=== PATIENT | female | born 1975 | race Caucasian/White ===

== ENCOUNTER → 2017-07-12 | Outpatient (CLI) | payer OTHER ==
[2017-07-12 17:31] LABS: BASO % 0.4 %; BASO ABS # 0.03 K/uL (0-0.2); EOS % 1.7 %; EOS ABS # 0.13 K/uL (0-0.5); HEMATOCRIT 42.1 % (37-47); HEMOGLOBIN 14.4 g/dL (12.0-16.0); IG# 0.01 K/uL (0.00-0.02); LYMPH ABS # 1.99 K/uL (1.2-3.4); MEAN CORPUSCULAR HEMOGLOBIN 30.8 pg (25-34); MEAN CORPUSCULAR HGB CONC 34.2 g/dl (32-36); MONO % 7.6 %; MONO ABS # 0.58 K/uL (0.11-0.59); NEUT % 64.2 %; NEUT ABS # 4.91 K/uL (1.4-6.5); PLATELET COUNT 278 K/uL (130-400); RED CELL DISTRIBUTION WIDTH CV 13.5 % (11.5-14.5); WHITE BLOOD COUNT 7.65 K/uL (4.8-10.8)
[2017-07-16 20:35] LABS: ANA SCREEN TC 249X NEGATIVE (NEGATIVE)
== END | disposition home or self-care (01) ==
LOC: C.LABBFT 12:23
PROVIDERS: ATTEND Internal Medicine
DX: M25.50 Pain in unspecified joint (principal); M53.3 Sacrococcygeal disorders, not elsewhere classified; M54.5 Low back pain

== ENCOUNTER → 2017-07-12 | Outpatient (CLI) | payer OTHER | END | disposition home or self-care (01) | LOC: C.RDSM 15:00 | PROVIDERS: ATTEND Orthopaedic Surgery | DX: M25.562 Pain in left knee (principal) ==

== ENCOUNTER → 2017-07-19 | Outpatient (CLI) | payer OTHER ==
--- NOTE | 2017-07-19 12:23 | DIAGNOSTIC IMAGING REPORT ---
SI JOINTS 3 OR MORE VIEWS CLINICAL HISTORY: M54.5 Low back painM25.50 Arthralgia of multiple goegtY25.3 Cocc pain COMPARISON STUDY: None FINDINGS: Sacroiliac joints are unremarkable bilaterally. Potential slight sclerosis of the articular margins. No evidence of bony ankylosis. Sacral foramina are symmetric. IMPRESSION: Slight sclerotic change of the articular margins of the sacroiliac joints. This may be degenerative. No evidence for bony ankylosis. The above report was generated using voice recognition software. It may contain grammatical, syntax or spelling errors. Electronically signed by: Stephen Angelo M.D. 07/19/2017 12:22 PM Dictated Date/Time: 07/19/2017 12:21 PM
== END | disposition home or self-care (01) ==
LOC: C.LAB1850 11:50
PROVIDERS: ATTEND Internal Medicine
DX: M25.50 Pain in unspecified joint (principal); M54.5 Low back pain; M53.3 Sacrococcygeal disorders, not elsewhere classified

== ENCOUNTER → 2017-08-11 | Outpatient (CLI) | payer OTHER ==
--- NOTE | 2017-08-12 13:36 | MAMMOGRAPHY REPORT ---
BILATERAL DIGITAL SCREENING MAMMOGRAM TOMOSYNTHESIS WITH CAD: 08/11/2017 CLINICAL HISTORY: Routine screening. Patient has no complaints. TECHNIQUE: Breast tomosynthesis in addition to standard 2D mammography was performed. Current study was also evaluated with a Computer Aided Detection (CAD) system. COMPARISON: Comparison is made to exams dated: 05/10/2016 mammogram, 04/15/2015 mammogram - [facility], and 02/05/2014 mammogram. BREAST COMPOSITION: There are scattered areas of fibroglandular density in both breasts. FINDINGS: No suspicious masses, calcifications, or areas of architectural distortion are noted in ei ther breast. There has been no significant interval change compared to prior exams. IMPRESSION: ACR BI-RADS CATEGORY 1: NEGATIVE There is no mammographic evidence of malignancy. A 1 year screening mammogram is recommended. The pa tient will receive written notification of the results. Approximately 10% of breast cancers are not detected with mammography. A negative mammographic report should not delay biopsy if a clinically suggestive mass is present. Latha Antonio M.D. ah/:08/12/2017 07:14:27 Dental Ceramist Helper: Mer RANGEL(R)(M), [facility] letter sent: Normal 1/2 BI-RADS Code: ACR BI-RADS Category 1: Negative
== END | disposition home or self-care (01) ==
LOC: C.MAMM 13:56
PROVIDERS: ATTEND Internal Medicine
DX: Z12.31 Encounter for screening mammogram for malignant neoplasm of breast (principal)

== ENCOUNTER 2021-06-01 10:54 | Observation (INO) ==
[2021-06-01] MEDS ORDERED: ONDANSETRON INJ 2 MG/ML 2 ML VIAL IV STA (11:13)
[2021-06-01] MEDS ORDERED: MoRPHine SULFATE 4 MG/ML 1 ML CARP\\VIAL IV PRN (11:13)
[2021-06-01] MEDS ORDERED: SODIUM CHLORIDE 0.9% 1000ML 1,000 ML IV STA (11:13)
[2021-06-01] MEDS ORDERED: KETOROLAC TROMETHAMINE 15 MG/ML VIAL IV STA (11:13)
[2021-06-01] MEDS ORDERED: HYDROmorphone INJ 0.5 MG/0.5 ML SYR IV STA (11:13)
--- NOTE | 2021-06-01 11:18 | Emergency Department Note ---
Impression & Plan Renal colic, Acute right flank pain, Hydronephrosis, Failure of outpatient treatment ED Provider Note NAME: GUMARO CAO AGE: 46 SEX: F : 1975 ARRIVES VIA: Walk-In INFORMANT: [Patient] ED PROVIDER(S): [Sid Cam MD] CHIEF COMPLAINT: Kidney stone HISTORY OF PRESENT ILLNESS: The patient is a 46-year-old female presents to the ER with a right sided kidney stone. She was here on the 16th and then last evening. She is still in a lot of pain despite medication adjustments. She was referred in today by urology for pain control and what sounds like a retrieval procedure. The patient does have nausea, no vomiting. She is not sleeping well and she feels exhausted. The pain is severe on the right side and the right flank. No urinary burning or urgency. No chest pain or shortness of breath. This is her first kidney stone. The patient's stone noted on CT and ultrasound imaging with her last visits was around 5 mm and at the distal right ureter. REVIEW OF SYSTEMS: See HPI for pertinent positives and negatives. A total of ten systems were reviewed and were otherwise negative. PMHx/PSHx: See Below SOCIAL HISTORY: See Below. PHYSICAL EXAM: GENERAL: Patient is in mild distress from pain. HEENT: No acute trauma, normocephalic atraumatic, mucous membranes moist, no nasal congestion, no scleral icterus. NECK: No stridor, no adenopathy, no meningismus, trachea is midline. LUNGS: Clear to auscultation bilaterally, no wheeze, no rhonchi, breath sounds equal. HEART: Without murmurs gallops or rubs, regular rate and rhythm. ABDOMEN: Soft, mildly tender along the right lower abdomen, bowel sounds positive, no hernias, no peritonitis. EXTREMITIES: No cyanosis, mild bilateral pedal edema, full range of motion of all the joints without pain or difficulty, no signs for acute trauma. NEUROLOGIC: Oriented x 3, no acute motor or sensory deficits, no focal weakness. SKIN: No rash, no jaundice, no diaphoresis. Back: Right flank discomfort to percussion. DIFFERENTIAL DIAGNOSIS: Renal colic, UTI, appendicitis, diverticulitis, mesenteric ischemia, aortic pathology, infections, inflammatory bowel disease, PUD, biliary pathology, failed outpatient treatment, as well as other pathologies. EMERGENCY DEPARTMENT COURSE/PROCEDURES: MEDICAL DECISION MAKING: There is no leukocytosis or concerning anemia. There is a normal platelet count. There is some renal insufficiency/acute kidney injury with a creatinine elevation of 1.42. No electrolyte abnormality in need of emergent correction. Urinalysis does not show obvious infection. Covid testing returned negative. KUB shows a distal right ureteral stone as noted in previous imaging. On exam, the patient was uncomfortable and had right flank pain to percussion. The patient has failed outpatient treatment. This is her third visit for this same ureteral stone. The patient was given IV Dilaudid, IV Zofran, IV morphine, IV Toradol and IV saline. She does seem more comfortable. I discussed the case with urology. I spoke with the patient and case management. The on-call hospitalist has been consulted. The patient is likely going to require urologic intervention in addition to pain control. Past Med/Surg History Medical History Allergic rhinitis Bilateral cataracts Chronic right sacroiliac joint pain Depression with anxiety Eczema Hyperlipidemia Hypertension Insomnia Left knee pain Migraine headache Myofascial pain Nerve pain Osteoarthritis Varicose veins of legs Surgical History H/O Achilles tendon repair H/O foot surgery Padgett's neuroma excision History of arthroscopy of knee History of section History of total hysterectomy with bilateral oophorectomy Status post surgical manipulation of ankle joint left Family History Father Diabetes Hypertension Myocardial infarction Coronary heart disease Mother Depression Hypertension Anxiety Sister Gallbladder disease Denies family history of Ovarian cancer Prostate cancer Breast cancer Social History Smoking Status: Never smoker Hx Alcohol Use: No Hx Substance Use: No Preferred Language: [place] Visual Impairment: No Limitations Hearing Ability: Normal 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 Beliefs That Will Affect Care: None marital status: Current Living Situation: Spouse and Family current occupational status: employed and unemployed Feels Safe at Home: Yes Dental Care, Regularly: Yes Physical Activity Frequency: Other Physical Activity Frequency Comment: limited Seatbelt Use: always Allergies Allergies Allergy/AdvReac Type Severity Reaction Status Date / Time peanut Allergy Verified 06/01/21 12:51 Penicillins Allergy Verified 06/01/21 12:51 Home Meds Home Medications Medication Instructions Recorded Confirmed MedTerra CBD Gummies 25 mg PO DAILY PRN 05/15/21 06/01/21 albuterol sulfate 90 mcg/actuation 2 puffs INH Q6H PRN 05/28/21 06/01/21 aerosol inhaler (ProAir HFA) bupropion HCl 300 mg 24 hr tablet, 300 mg PO QAM 05/28/21 06/01/21 extended release enalapril 5 mg-hydrochlorothiazide 1 tab PO QAM 05/28/21 06/01/21 12.5 mg tablet estradiol 2 mg tablet 2 mg PO QAM 05/28/21 06/01/21 ibuprofen 200 mg tablet 800 mg PO Q6H PRN 05/28/21 06/01/21 multivitamin 1 tab PO QAM 05/28/21 06/01/21 phentermine 37.5 mg capsule 37.5 mg PO QAM 05/31/21 06/01/21 rosuvastatin 40 mg tablet 40 mg PO HS 05/31/21 06/01/21 tamsulosin 0.4 mg capsule (Flomax) 0.4 mg PO QAM 05/31/21 06/01/21 Previous Rx's Medication Instructions Recorded lorazepam 0.5 mg tablet 0.5 mg PO Q8H PRN #30 tab 06/19/20 gabapentin 300 mg capsule 1,500 mg PO HS #450 cap 12/18/20 zolpidem 5 mg tablet 5 mg PO HS #90 tab 04/10/21 ondansetron 4 mg disintegrating 4 mg PO Q6H PRN #10 tab 05/28/21 tablet hydrocodone 5 mg-acetaminophen 325 1 tab PO Q6H PRN #15 tab 05/29/21 mg tablet oxycodone 5 mg tablet 5 mg PO Q4H PRN #15 tab 05/31/21 phenazopyridine 200 mg tablet 200 mg PO Q8H PRN #10 tab 05/31/21 (Pyridium) cephalexin 500 mg capsule 500 mg PO BID 3 Days #6 cap 06/01/21 phenazopyridine 200 mg tablet 200 mg PO Q8H PRN #10 tab 06/01/21 (Pyridium) tamsulosin 0.4 mg capsule 0.4 mg PO HS #30 cap 06/01/21 Results & Data (ED) Vital Signs Vital Signs - 24 hr 06/01/21 10:56 06/01/21 11:29 06/01/21 12:27 Temperature 36.4 C L Temperature Source Temporal Artery Scan Pulse Rate 101 H Pulse Rate [Apical] 77 70 Pulse Rhythm [Apical] Regular Regular Respiratory Rate 16 14 14 Respiratory Effort / Characteristics Non-Labored Non-Labored Spontaneous Non-Labored Spontaneous Respiratory Depth Normal Normal Normal Respiratory Pattern Regular Regular Regular Blood Pressure 173/95 H Blood Pressure [Left Arm] 154/86 H 144/77 H Blood Pressure Mean 121 Blood Pressure Mean [Left Arm] 108 99 Blood Pressure Position [Left Arm] Lying Lying Pulse Oximetry 94 98 98 Oxygen Delivery Method Room Air Room Air Room Air Sepsis Recent Fever Within 48 Hours No Sepsis New/Unexplained Change in Mental Status No Sepsis Action Taken by Nursing No Action Required 06/01/21 14:41 06/01/21 15:27 Temperature 36.8 C Temperature Source Oral Pulse Rate Pulse Rate [Apical] 82 74 Pulse Rhythm [Apical] Regular Respiratory Rate 14 12 Respiratory Effort / Characteristics Non-Labored Spontaneous Respiratory Depth Normal Respiratory Pattern Regular Regular Blood Pressure Blood Pressure [Left Arm] 144/83 H 142/75 H Blood Pressure Mean Blood Pressure Mean [Left Arm] 103 97 Blood Pressure Position [Left Arm] Sitting Pulse Oximetry 93 94 Oxygen Delivery Method Room Air Room Air Sepsis Recent Fever Within 48 Hours Sepsis New/Unexplained Change in Mental Status Sepsis Action Taken by Retirement Medications Current Medication List: was personally reviewed by me Laboratory Data Attestation: I reviewed the patient's lab results. Result diagrams: 06/01/21 11:20 06/01/21 11:20 Lab Results 06/01/21 06/01/21 06/01/21 Range/Units 11:20 11:20 11:30 WBC 9.11 (4.8-10.8) K/uL RBC 4.32 (4.2-5.4) M/uL Hgb 13.2 (12.0-16.0) g/dL Hct 39.5 (37-47) % MCV 91.4 (80-100) fL MCH 30.6 (25-34) pg MCHC 33.4 (32-36) g/dL RDW Std Deviation 42.8 (36.4-46.3) fL RDW Coeff of Tereso 12.8 (11.5-14.5) % Plt Count 293 (130-400) K/uL MPV 9.2 (7.4-10.4) fL Immature Gran % (Auto) 0.1 % Neut % (Auto) 67.4 % Lymph % (Auto) 19.1 % [place] % (Auto) 10.6 % Eos % (Auto) 2.5 % Baso % (Auto) 0.3 % Neut # (Auto) 6.13 (1.4-6.5) K/uL Lymph # (Auto) 1.74 (1.2-3.4) K/uL [place] # (Auto) 0.97 H (0.11-0.59) K/uL Eos # (Auto) 0.23 (0-0.5) K/uL Baso # (Auto) 0.03 (0-0.2) K/uL Immature Gran # (Auto) 0.01 (0.00-0.02) K/uL Sodium 139 (136-145) mmol/L Potassium 3.8 (3.5-5.1) mmol/L Chloride 102 (98-107) mmol/L Carbon Dioxide 32 (21-32) mmol/L Anion Gap 5.0 (3-11) BUN 14 (7-18) mg/dl Creatinine 1.42 H (0.6-1.2) mg/dl Est Cr Clr Drug Dosing 64.1 ml/min Est GFR ( Amer) 50.5 ml/min Est GFR (Non-Af Amer) 43.6 ml/min BUN/Creatinine Ratio 10.2 (10-20) Glucose 107 H (70-99) mg/dl Calcium 9.3 (8.5-10.1) mg/dl Specimen Hemolysis Urine Color Urine Appearance (Clear) Urine pH (4.5-7.5) Ur Specific [place] (1.000-1.030) Urine Protein (Negative) Urine Glucose (UA) (Negative) Urine Ketones (Negative) Urine Blood (Negative) Urine Nitrite (Negative) Urine Bilirubin (Negative) Urine Urobilinogen (Negative) Ur Leukocyte Esterase (Negative) Urine RBC (0-4) /hpf Urine WBC (0-5) /hpf Ur Epithelial Cells (0-5) /lpf Urine Bacteria (Negative) SARS-CoV-2, RNA, NAAT NEGATIVE (NEGATIVE) 06/01/21 Range/Units 14:39 WBC (4.8-10.8) K/uL RBC (4.2-5.4) M/uL Hgb (12.0-16.0) g/dL Hct (37-47) % MCV (80-100) fL MCH (25-34) pg MCHC (32-36) g/dL RDW Std Deviation (36.4-46.3) fL RDW Coeff of Tereso (11.5-14.5) % Plt Count (130-400) K/uL MPV (7.4-10.4) fL Immature Gran % (Auto) % Neut % (Auto) % Lymph % (Auto) % [place] % (Auto) % Eos % (Auto) % Baso % (Auto) % Neut # (Auto) (1.4-6.5) K/uL Lymph # (Auto) (1.2-3.4) K/uL [place] # (Auto) (0.11-0.59) K/uL Eos # (Auto) (0-0.5) K/uL Baso # (Auto) (0-0.2) K/uL Immature Gran # (Auto) (0.00-0.02) K/uL Sodium (136-145) mmol/L Potassium (3.5-5.1) mmol/L Chloride (98-107) mmol/L Carbon Dioxide (21-32) mmol/L Anion Gap (3-11) BUN (7-18) mg/dl Creatinine (0.6-1.2) mg/dl Est Cr Clr Drug Dosing ml/min Est GFR ( Amer) ml/min Est GFR (Non-Af Amer) ml/min BUN/Creatinine Ratio (10-20) Glucose (70-99) mg/dl Calcium (8.5-10.1) mg/dl Specimen Hemolysis Urine Color [place] Urine Appearance Clear (Clear) Urine pH (4.5-7.5) Ur Specific [place] 1.018 (1.000-1.030) Urine Protein (Negative) Urine Glucose (UA) (Negative) Urine Ketones (Negative) Urine Blood (Negative) Urine Nitrite (Negative) Urine Bilirubin (Negative) Urine Urobilinogen (Negative) Ur Leukocyte Esterase (Negative) Urine RBC 0-4 (0-4) /hpf Urine WBC 5-10 H (0-5) /hpf Ur Epithelial Cells 5-10 H (0-5) /lpf Urine Bacteria 1+ H (Negative) SARS-CoV-2, RNA, NAAT (NEGATIVE) Administered Medications Discontinued Medications Diatrizoate Meglumine (Diatrizoate Meglumine 30% 100ml Vial) 10 ml INSTIL ONCE ONE Stop: 06/01/21 16:39 Last Admin: 06/01/21 16:20 Dose: 10 ml Documented by: [id number] Hydromorphone HCl (Hydromorphone Inj 0.5 Mg/0.5 Ml Syr) 0.5 mg IV NOW STA Stop: 06/01/21 11:14 Last Admin: 06/01/21 11:23 Dose: 0.5 mg Documented by: [id number] Sodium Chloride (Nss 1000ml) 1,000 mls @ 999 mls/hr IV .Q1H1M STA Stop: 06/01/21 12:13 Last Infusion: 06/01/21 12:18 Dose: 0 mls/hr Documented by: [id number] Admin: 06/01/21 11:24 Dose: 999 mls/hr Documented by: [id number] Cefazolin Sodium (Ancef 2000mg) 2,000 mg in 15 mls @ 3.75 mls/min IV ONCE ONE Stop: 06/01/21 16:42 Last Admin: 06/01/21 16:06 Dose: 3.75 mls/min Documented by: [id number] Ketorolac Tromethamine (Ketorolac Tromethamine 15 Mg/Ml Vial) 15 mg IV NOW STA Stop: 06/01/21 11:14 Last Admin: 06/01/21 11:23 Dose: 15 mg Documented by: [id number] Morphine Sulfate (Morphine Sulfate 4 Mg/Ml 1 Ml [place]\Vial) 4 mg IV Q15M PRN PRN Reason: Pain Stop: 06/15/21 11:12 Last Admin: 06/01/21 14:45 Dose: 4 mg Documented by: [id number] Ondansetron HCl (Ondansetron Inj 2 Mg/Ml 2 Ml Vial) 4 mg IV NOW STA Stop: 06/01/21 11:14 Last Admin: 06/01/21 11:23 Dose: 4 mg Documented by: [id number] Imaging Data Radiologist's Impression: Retrograde Pyelogram 06/01/21 00:00 FL retrograde includes kub CLINICAL HISTORY: RT CYSTO STENT COMPARISON STUDY: None FLUOROSCOPY TIME: 15 second. FLUOROSCOPIC IMAGES: 3 FINDINGS: A double-J ureteral stent was placed on the right. No filling defects are identified within the imaged portion of the calyces. IMPRESSION: Status post double-J ureteral stent placement. ACT 112: Negative or not required by law. Electronically signed by: Humphrey Amezcua M.D. 06/01/2021 4:35 PM KUB X-Ray 06/01/21 11:13 KUB HISTORY: Follow up study in a patient with a right ureteral calculus r stone COMPARISON: KUB 05/31/2021 FINDINGS: Nonobstructive bowel gas pattern. Unchanged positioning of the 5 mm calculus of the distal right ureter. No renal calculi identified. Pelvic basin phleboliths redemonstrated. No pneumoperitoneum or pneumatosis. No fracture. IMPRESSION: Unchanged 5 mm calculus of the distal right ureter. ACT 112: Negative or not required by law. The above report was generated using voice recognition software. It may contain grammatical, syntax or spelling errors. Electronically signed by: Srinivasa Vidales M.D. 06/01/2021 12:43 PM Discharge Plan Visit Data Chief Complaint: Kidney Stone Stated Complaint: RT SIDED FLANK PAIN,KIDNEY STONE ED Provider: Sid Cam Discharge Problem: Renal colic, Acute right flank pain, Hydronephrosis, Failure of outpatient treatment Patient Disposition: Admitted As Inpatient Condition: Fair Discharge Instructions Interventions: ED Discharge Assessment Last Done: 06/01/21 17:25
[2021-06-01 11:35] LABS: Basophils # (auto) 0.03 K/uL (0-0.2); Basophils % (auto) 0.3 %; Eosinophils # (auto) 0.23 K/uL (0-0.5); Eosinophils % (auto) 2.5 %; Hematocrit (blood only) 39.5 % (37-47); Hemoglobin 13.2 g/dL (12.0-16.0); Immature Granulocytes # (auto) 0.01 K/uL (0.00-0.02); Immature Granulocytes % (auto) 0.1 %; Lymphocytes # (auto) 1.74 K/uL (1.2-3.4); Lymphocytes % (auto) 19.1 %; Mean Corpuscular Hemoglobin 30.6 pg (25-34); Mean Corpuscular Hgb Conc 33.4 g/dL (32-36); Mean Corpuscular Volume 91.4 fL (80-100); Mean Platelet Volume 9.2 fL (7.4-10.4); Monocytes # (auto) 0.97 K/uL (0.11-0.59); Monocytes % (auto) 10.6 %; Neutrophils # (auto) 6.13 K/uL (1.4-6.5); Neutrophils % (auto) 67.4 %; Platelet Count 293 K/uL (130-400); RDW Coefficient of Variation 12.8 % (11.5-14.5); RDW Standard Deviation 42.8 fL (36.4-46.3); Red Blood Count 4.32 M/uL (4.2-5.4); White Blood Count 9.11 K/uL (4.8-10.8)
[2021-06-01 11:59] LABS: BUN Creatinine Ratio 10.2 (10-20); Calcium 9.3 mg/dl (8.5-10.1); Creatinine Clr Calc Pharmacy 64.1 ml/min; Est GFR (African American) 50.5 ml/min; Est GFR (Non-African American) 43.6 ml/min; Potassium 3.8 mmol/L (3.5-5.1)
--- NOTE | 2021-06-01 12:45 | XRay Report ---
KUB HISTORY: Follow up study in a patient with a right ureteral calculus r stone COMPARISON: KUB 05/31/2021 FINDINGS: Nonobstructive bowel gas pattern. Unchanged positioning of the 5 mm calculus of the distal right ureter. No renal calculi identified. Pelvic basin phleboliths redemonstrated. No pneumoperiton eum or pneumatosis. No fracture. IMPRESSION: Unchanged 5 mm calculus of the distal right ureter. ACT 112: Negative or not required by law. The above report was generated using voice recognition software. It may contain grammatical, syntax o r spelling errors. Electronically signed by: Srinivasa Vidales M.D. 06/01/2021 12:43 PM
--- NOTE | 2021-06-01 13:51 | Urology Consultation ---
Date of Consultation June 01, 2021 Assessment & Plan (1) Ureteral stone with hydronephrosis: (2) MARTÍN (acute kidney injury): (3) Acute right flank pain: 46yo F with intractable right flank pain and MARTÍN secondary to an obstructing right ureteral stone - Pt afebrile, non-toxic appearing. - Labs reviewed - Wbc normal, creatinine elevated to 1.42 (1.46 yesterday) - Urine culture pending - Findings reviewed with Dr. Pickard, on-call urologist. - Given her intractable flank pain and MARTÍN in the context of an obstructing 5mm right ureteral stone, will proceed with OR for cystoscopy, retrograde pyelogram, right ureteral stent placement depending on findings. Risks and benefits to be r eviewed with patient by Dr. Pickard. - OR notified. Covid test negative. Will cover with IV Ancef preoperatively. - Keep NPO - Strain all urine - Continue supportive care and pain management per primary team - Patient agreeable to plan, all questions were answered - Will continue to follow Attending note: Patient independently evaluated, examined, interviewed, and discussed options. Agree with above. Patient has obstructing stone on right with hydronephrosis and severe pain. Pain comes in waves into the back and flank can be severe and debilitating and was not responding well to outpatient therapy or IV narcotics. Patient has never had stone before. Has no family history of stone disease. Was not having major bleeding. Has not had considerable fevers or chills. Did have an MARTÍN when last assessed. Has been attempting to hydrate however has been dealing with some nausea. Patient is n.p.o. Had negative Covid test. Due to possible issues including possible damage to the kidney with long-term obstruction as well as considerable narcotic reliance and limited options for expulsion therapy surgical intervention have been discussed. Risks and benefits discussed at length for procedure. These include bleeding, infection, injury to surrounding tissues or organs, and risks associated with anesthesia. Patient states understanding and agrees to proceed. Will sign consent and proceed. Plan for cystoscopy with possible right stent placement. On top of the typical risks and benefits, there is increased risk due to the current pandemic from the COVID-19 virus and the resulting health care crisis. Patient's disease is considered a high risk with significant risk of morbidity and mortality if allowed to continue untreated. Different alternatives had been discussed. Delay of intervention at this time would have significant risk to life and limb. Specifically there is a chance of progression to severe disease or loss of organ/renal function, progression to infection or other advanced disease, and/or possible . The procedure is deemed medically necessary and life sustaining. This was determined based on best clinical judgement with guidelines and recommendations based on good practices. Multiple professional organizations have published and sent recommendations for surgical and urologic intervention and procedures and t he planned procedure falls into the category of necessary procedure. History of Present Illness Reason for Consultation: ureteral stone History of Present Illness 46yo F with a PMHx including bilateral cataracts, depression, anxiety, hypertension, migraine headache, osteoarthritis and varicose veins, Achilles tendon repair, Padgett's neuroma excision /arthroscopy of knee, , JENA/BSO who was admitted with intractable right flank pain and nausea secondary to an obstructing right ureteral stone. The patient initially presented to [facility] ER on 05/28/2021 complaining of right lower quadrant pain with nausea. CT scan noted an obstructing distal right ureteral calculus and the patient was discharged on Flomax, Zofran and Morganza and advised to seek outpatient stone care. On 05/31/2021 the patient returned to the ER complaining of persistent and severe right flank pain with no relief with Morganza. The patient was afebrile. The patient's imaging noted no change in the position of her right ureteral calculus and she was provided with oxycodone and Pyridium to take in addition to her Flomax and Zofran. She was instructed on the use of ibuprofen and Tylenol to assist with pain control in addition to her narcotic medication. She then presented again today (06/01) for persistent and worsening right flank pain. On presentation, she was afebrile. No leukocytosis. Creatinine elevated to 1.42. Urinalysis from 05/31 ED visit was negative. Urine culture from 05/28 negative for infection, was consistent with contamination. KUB today noted an unchanged 5mm calculus of the distal right ureter. She was given IVF, IV pain and nausea medication. Given her multiple ER visits and worsening renal colic after failing outpatient therapy, she was admitted to medicine for pain control. KUB 06/01- Unchanged 5 mm calculus of the distal right ureter. Renal ultrasound 05/31- Mild right-sided hydronephrosis redemonstrated, likely secondary to the persistent calculus of the distal right ureter as noted on the KUB study of same day. CTAP 05/28- 5 mm obstructing calculus at the right vesicoureteral junction. This causes mild to moderate right hydroureteronephrosis; No additional renal calculi are identified. Pt examined at bedside in the ED. Awake, resting in bed on arrival. Still with right flank pain, rates 6/10. Reports pain is improved with IV pain medication. She continues to have some associated nausea with her colic, but has not vomited. She has not had any fevers or chills. Voiding without issue. Patient denies any dysuria. Denies hematuria, however she has been taking Pyridium so her urine is orange in color. She has not had anything to eat or drink since yesterday. This is her first stone. She has seen a urologist in the past in [place]. She has a hx of bladder sling and urodynamic testing. No additional complaints at time of exam. Allergies Allergy/AdvReac Type Severity Reaction Status Date / Time peanut Allergy Verified 06/01/21 12:51 Penicillins Allergy Verified 06/01/21 12:51 Home Medications Medication Instructions Recorded Confirmed Type lorazepam 0.5 mg tablet 0.5 mg PO Q8H PRN #30 tab 06/19/20 06/01/21 Rx gabapentin 300 mg capsule 1,500 mg PO HS #450 cap 12/18/20 06/01/21 Rx zolpidem 5 mg tablet 5 mg PO HS #90 tab 04/10/21 06/01/21 Rx MedTerra CBD Gummies 25 mg PO DAILY PRN 05/15/21 06/01/21 History albuterol sulfate 90 mcg/actuation 2 puffs INH Q6H PRN 05/28/21 06/01/21 History aerosol inhaler (ProAir HFA) bupropion HCl 300 mg 24 hr tablet, 300 mg PO QAM 05/28/21 06/01/21 History extended release enalapril 5 mg-hydrochlorothiazide 1 tab PO QAM 05/28/21 06/01/21 History 12.5 mg tablet estradiol 2 mg tablet 2 mg PO QAM 05/28/21 06/01/21 History ibuprofen 200 mg tablet 800 mg PO Q6H PRN 05/28/21 06/01/21 History multivitamin 1 tab PO QAM 05/28/21 06/01/21 History ondansetron 4 mg disintegrating 4 mg PO Q6H PRN #10 tab 05/28/21 06/01/21 Rx tablet hydrocodone 5 mg-acetaminophen 325 1 tab PO Q6H PRN #15 tab 05/29/21 06/01/21 Rx mg tablet oxycodone 5 mg tablet 5 mg PO Q4H PRN #15 tab 05/31/21 06/01/21 Rx phenazopyridine 200 mg tablet 200 mg PO Q8H PRN #10 tab 05/31/21 06/01/21 Rx (Pyridium) phentermine 37.5 mg capsule 37.5 mg PO QAM 05/31/21 06/01/21 History rosuvastatin 40 mg tablet 40 mg PO HS 05/31/21 06/01/21 History tamsulosin 0.4 mg capsule (Flomax) 0.4 mg PO QAM 05/31/21 06/01/21 History Patient History Medical History Allergic rhinitis Bilateral cataracts Chronic right sacroiliac joint pain Depression with anxiety Eczema Hyperlipidemia Hypertension Insomnia Left knee pain Migraine headache Myofascial pain Nerve pain Osteoarthritis Varicose veins of legs Surgical History H/O Achilles tendon repair H/O foot surgery Padgett's neuroma excision History of arthroscopy of knee History of section History of total hysterectomy with bilateral oophorectomy Status post surgical manipulation of ankle joint left Family History Father Diabetes Hypertension Myocardial infarction Coronary heart disease Mother Depression Hypertension Anxiety Sister Gallbladder disease Denies family history of Ovarian cancer Prostate cancer Breast cancer Social History Smoking Status: Never smoker Hx Alcohol Use: No Hx Substance Use: No Preferred Language: Russian Visual Impairment: No Limitations Hearing Ability: Normal Pit Supervisor Required: No Beliefs That Will Affect Care: None marital status: Current Living Situation: Spouse and Family current occupational status: employed and unemployed Feels Safe at Home: Yes Dental Care, Regularly: Yes Physical Activity Frequency: Other Physical Activity Frequency Comment: limited Seatbelt Use: always Review of Systems Review of Systems: All systems reviewed & are unremarkable except as noted in HPI & below Physical Exam Constitutional: well developed and well nourished; no acute distress and not ill appearing ENMT: Ears: no hearing impairment Neck: normal visual inspection Respiratory: normal respiratory effort and able to speak in complete sentences; no labored breathing and no audible wheezes Gastrointestinal (Abdomen): Inspection/Auscultation: abdomen normal to inspection; abdomen not distended Musculoskeletal: Head/Neck/Chest: normocephalic Skin: No visible rashes or lesions to exposed skin areas Neurologic: moves all extremities and awake Psychiatric: Orientation: alert, oriented x 3 and cooperative Results & Data ([facility]) Vital Signs (Past 12 Hours) Vital Signs Temp Pulse Pulse Resp BP BP Pulse Ox 06/01/21 12:27 70 14 144/77 H 98 06/01/21 11:29 77 14 154/86 H 98 06/01/21 10:56 36.4 C L 101 H 16 173/95 H 94 PG Care Time/CCT Total # of Minutes Spent Total Time Spent with Patient: Total time spent is greater than 50% in coordination of care (as documented) at patient's floor/unit and/or counseling patient: Coding Level of Care Code 58229 Inpt Consult Level 4 Diagnoses Acute right flank pain R10.9 MARTÍN (acute kidney injury) N17.9 Ureteral stone with hydronephrosis N13.2
--- NOTE | 2021-06-01 14:12 | History & Physical Report ---
Date of Service June 01, 2021 Assessment & Plan (1) Colic, ureteral: (2) Right ureteral stone: (3) Hydroureter on right: (4) Ureteral stone with hydronephrosis: Plan: Mrs. Lynch is a 46-year-old female with a history of Hypertension, Familial Hypercholesterolemia, Depression, Anxiety, Obesity, Osteoarthritis, Migraine Headaches, Chronic Insomnia, and Varicose Veins who presents to [facility] ER today with ongoing RLQ and right flank pain and ureteral colic secondary to an obstructing ureteral stone resulting in right hydroureter and right hydronephrosis and MARTÍN. To her knowledge, this is the 1st time she has ever had kidney stone. Patient states that last Tuesday evening, she began to note right sided flank pain which seemed to come and go, with some associated nausea. she came to the emergency room on 05/28/2021 with these symptoms, CT scan showed a 5 mm obstructing calculus the right vesicoureteral junction causing mild to moderate right hydroureteronephrosis. patient was re-evaluated the emergency room on 05/31/2021 with uncontrolled severe right flank pain. Arrangements were made to meet with [facility] later today but because of her persistent uncontrolled flank and RLQ pain -- she was advised to come back into the emergency room for admission and a planned stone retrieval. At the present time, after receiving morphine, her pain is "not so bad", but when she has colic, it is extremely painful. She continues to have some associated nausea with her colic, but has not vomited. She has not had any fever, chills, or diaphoresis. Patient denies any dysuria, urinary hesitancy, urinary frequency, or urinary urgency. She is not . At home, she has both Vicodin and Oxy IR available for pain control -- but these have not been effectively controlling her pain. Evaluation in the ER shows a normal CBC with diff, elevated serum Creatinine or 1.42 mg/dL, normal BUN. imaging study show a 5 mm obstructing stone in the distal right ureter. Renal ultrasound yesterday confirmed presence of a right- sided hydroureteronephrosis. UA with reflex culture has been ordered but is not yet collected. UA dated 05/31/21 was unremarkable. Recommend the followin. Admit to Med-Surg. 2. Urology consult. 3. Opiate analgesics for pain control. 4. IVF's. 5. Anti-emetics as needed. 6. Monitor labs renal function daily. (5) MARTÍN (acute kidney injury): Plan: Serum Creatinine on 05/31/21 was 1.46 mg/dL, and it is 1.42 mg/dL today. Baseline appears to be less than 0.8 mg/dL. -- IVF's. -- Monitor daily BMP. -- Will resolve following stone removal. -- Hold Enalapril-HCTZ for the time being. (6) Hypertension: Plan: Mildly hypertensive on admission, but she has pain with her condition. -- Hold Enalapril-HCTZ for the time being due to MARTÍN. (7) Hyperlipidemia: Plan: Continue Crestor 40 mg daily -- Last FLP in February 2020 shows a total cholesterol of 214 mg/dL, HDL 74 mg/dL, and an LDL 116 mg/dL. History of Present Illness Chief Complaint: Mrs. Lynch is a 46-year-old female with a history of Hypertension, Familial Hypercholesterolemia, Depression, Anxiety, Obesity, Osteoarthritis, Migraine Headaches, Chronic Insomnia, and Varicose Veins who presents to [facility] ER today with ongoing RLQ and right flank pain and ureteral colic secondary to an obstructing ureteral stone resulting in right hydroureter and right hydronephrosis and MARTÍN. To her knowledge, this is the 1st time she has ever had kidney stone. Patient states that last Tuesday evening, she began to note right sided flank pain which seemed to come and go, with some associated nausea. she came to the emergency room on 05/28/2021 with these symptoms, CT scan showed a 5 mm obstructing calculus the right vesicoureteral junction causing mild to moderate right hydroureteronephrosis. patient was re-evaluated the emergency room on 05/31/2021 with uncontrolled severe right flank pain. Arrangements were made to meet with [facility] later today but because of her persistent uncontrolled flank and RLQ pain -- she was advised to come back into the emergency room for admission and a planned stone retrieval. At the present time, after receiving morphine, her pain is "not so bad", but when she has colic, it is extremely painful. She continues to have some associated nausea with her colic, but has not vomited. She has not had any fever, chills, or diaphoresis. Patient denies any dysuria, urinary hesitancy, urinary frequency, or urinary urgency. She is not . At home, she has both Vicodin and Oxy IR available for pain control -- but these have not been effectively controlling her pain. Primary Care Provider: Betsy Hughes MD Allergies Allergy/AdvReac Type Severity Reaction Status Date / Time peanut Allergy Verified 06/01/21 12:51 Penicillins Allergy Verified 06/01/21 12:51 Home Medications Medication Instructions Recorded Confirmed Type lorazepam 0.5 mg tablet 0.5 mg PO Q8H PRN #30 tab 06/19/20 06/02/21 Rx gabapentin 300 mg capsule 1,500 mg PO HS #450 cap 12/18/20 06/02/21 Rx zolpidem 5 mg tablet 5 mg PO HS #90 tab 04/10/21 06/02/21 Rx MedTerra CBD Gummies 25 mg PO DAILY PRN 05/15/21 06/02/21 History albuterol sulfate 90 mcg/actuation 2 puffs INH Q6H PRN 05/28/21 06/02/21 History aerosol inhaler (ProAir HFA) bupropion HCl 300 mg 24 hr tablet, 300 mg PO QAM 05/28/21 06/02/21 History extended release enalapril 5 mg-hydrochlorothiazide 1 tab PO QAM 05/28/21 06/02/21 History 12.5 mg tablet estradiol 2 mg tablet 2 mg PO QAM 05/28/21 06/02/21 History ibuprofen 200 mg tablet 800 mg PO Q6H PRN 05/28/21 06/02/21 History multivitamin 1 tab PO QAM 05/28/21 06/02/21 History ondansetron 4 mg disintegrating 4 mg PO Q6H PRN #10 tab 05/28/21 06/02/21 Rx tablet hydrocodone 5 mg-acetaminophen 325 1 tab PO Q6H PRN #15 tab 05/29/21 06/02/21 Rx mg tablet oxycodone 5 mg tablet 5 mg PO Q4H PRN #15 tab 05/31/21 06/02/21 Rx phentermine 37.5 mg capsule 37.5 mg PO QAM 05/31/21 06/02/21 History rosuvastatin 40 mg tablet 40 mg PO HS 05/31/21 06/02/21 History phenazopyridine 200 mg tablet 200 mg PO Q8H PRN #10 tab 06/01/21 06/02/21 Rx (Pyridium) tamsulosin 0.4 mg capsule 0.4 mg PO HS #30 cap 06/01/21 06/02/21 Rx Past Med/Surg History Medical History Allergic rhinitis Bilateral cataracts Chronic right sacroiliac joint pain Depression with anxiety Eczema Hyperlipidemia Hypertension Insomnia Left knee pain Migraine headache Myofascial pain Nerve pain Osteoarthritis Varicose veins of legs Surgical History H/O Achilles tendon repair H/O foot surgery Padgett's neuroma excision History of arthroscopy of knee History of section History of total hysterectomy with bilateral oophorectomy Status post surgical manipulation of ankle joint left Family History Father Diabetes Hypertension Myocardial infarction Coronary heart disease Mother Depression Hypertension Anxiety Sister Gallbladder disease Denies family history of Ovarian cancer Prostate cancer Breast cancer Social History Smoking Status: Never smoker Hx Alcohol Use: No Hx Substance Use: No Preferred Language: Ugandan Visual Impairment: No Limitations Hearing Ability: Normal Engine Turner Required: No Beliefs That Will Affect Care: None marital status: Current Living Situation: Spouse and Family current occupational status: employed and unemployed Feels Safe at Home: Yes Dental Care, Regularly: Yes Physical Activity Frequency: Other Physical Activity Frequency Comment: limited Seatbelt Use: always Review of Systems Review of Systems: Ten point review of systems was completed, and was negative with exception of what is mentioned in the HPI. Physical Exam Physical Exam: GENERAL: Patient is lying on the ER litter and is in no acute distress. HEENT: Head is atraumatic, normocephalic. Sclerae anicteric. EOM's intact. Facies symmetric. No perioral cyanosis. NECK: No JVD. JVP is at the level of the clavicle sitting upright. Carotid upstrokes are + 2 bilaterally without obvious bruits. CHEST/LUNGS: Clear to auscultation throughout all lung [place]oy. No wheezes, rales, or crackles. CVS: S1 and S2 are regular without murmurs, gallops, or rubs. PMI is nonpalpable. No lifts, heaves, or thrills. No abdominal aortic or renal bruits. ABDOMINAL EXAM: Bowel sounds are present. Tenderness to deep palpation right lower quadrant. No guarding, rigidity, or rebound tenderness. No masses or organomegaly. EXTREMITIES: No clubbing or cyanosis. No edema. Intact posterior tibial and radial pulses bilaterally. NEUROLOGIC EXAM: Patient is awake, alert, and oriented. Pleasant and cooperative. Answers questions appropriately. Speech is clear. Gait pattern was not assessed. Osha Inspector shows a normal sinus rhythm. Results & Data Results & Data ([facility]) Vital Signs (Past 12 Hours) Vital Signs Temp Pulse Pulse Resp BP BP Pulse Ox 06/01/21 12:27 70 14 144/77 H 98 06/01/21 11:29 77 14 154/86 H 98 06/01/21 10:56 36.4 C L 101 H 16 173/95 H 94 Laboratory Results Laboratory Results - last 24 hr 06/01/21 06/01/21 06/01/21 11:20 11:20 11:30 WBC 9.11 RBC 4.32 Hgb 13.2 Hct 39.5 MCV 91.4 MCH 30.6 MCHC 33.4 RDW Std Deviation 42.8 RDW Coeff of Tereso 12.8 Plt Count 293 MPV 9.2 Immature Gran % (Auto) 0.1 Neut % (Auto) 67.4 Lymph % (Auto) 19.1 [place] % (Auto) 10.6 Eos % (Auto) 2.5 Baso % (Auto) 0.3 Neut # (Auto) 6.13 Lymph # (Auto) 1.74 [place] # (Auto) 0.97 H Eos # (Auto) 0.23 Baso # (Auto) 0.03 Immature Gran # (Auto) 0.01 Sodium 139 Potassium 3.8 Chloride 102 Carbon Dioxide 32 Anion Gap 5.0 BUN 14 Creatinine 1.42 H Est Cr Clr Drug Dosing 64.1 Est GFR ( Amer) 50.5 Est GFR (Non-Af Amer) 43.6 BUN/Creatinine Ratio 10.2 Glucose 107 H Calcium 9.3 Specimen Hemolysis SARS-CoV-2, RNA, NAAT NEGATIVE Diagnostic Findings KUB 06/01/21: Nonobstructive bowel gas pattern. Unchanged positioning of the 5 mm calculus of the distal right ureter. No renal calculi identified. Pelvic basin phleboliths redemonstrated. No pneumoperitoneum or pneumatosis. No fracture. IMPRESSION: Unchanged 5 mm calculus of the distal right ureter. RENAL ULTRASOUND 05/31/21: Mild right-sided hydroureteronephrosis redemonstrated without renal or ureteral calculi identified. The right kidney measures 13.3 x 7.1 x 5.5 cm. The left kidney measures 11.1 x 4.7 x 5.2 cm and is unremarkable without renal calculi, hydronephrosis or suspicious mass lesion. Decompressed urinary bladder. Ureteral jets not identified. IMPRESSION: Mild right-sided hydronephrosis redemonstrated, likely secondary to the persistent calculus of the distal right ureter as noted on the KUB study of same day. KUB 05/31/21: Moderate fecal retention with nonobstructive bowel gas pattern. Unchanged positioning of the 5 mm calculus of the distal right ureter. Pelvic basin phleboliths. No renal calculi identified. No pneumoperitoneum or pneumatosis. No fracture. IMPRESSION: Unchanged 5 mm calculus of the distal right ureter. Medications Administered Medications lorazepam 0.5 mg tablet 0.5 mg PO Q8H PRN #30 tab 06/19/20 [Rx Confirmed 06/01/21] gabapentin 300 mg capsule 1,500 mg PO HS #450 cap 12/18/20 [Rx Confirmed 06/01/21] zolpidem 5 mg tablet 5 mg PO HS #90 tab 04/10/21 [Rx Confirmed 06/01/21] MedTerra CBD Gummies 25 mg PO DAILY PRN 05/15/21 [History Confirmed 06/01/21] albuterol sulfate 90 mcg/actuation aerosol inhaler (ProAir HFA) 2 puffs INH Q6H PRN 05/28/21 [History Confirmed 06/01/21] bupropion HCl 300 mg 24 hr tablet, extended release 300 mg PO QAM 05/28/21 [History Confirmed 06/01/21] enalapril 5 mg-hydrochlorothiazide 12.5 mg tablet 1 tab PO QAM 05/28/21 [History Confirmed 06/01/21] estradiol 2 mg tablet 2 mg PO QAM 05/28/21 [History Confirmed 06/01/21] ibuprofen 200 mg tablet 800 mg PO Q6H PRN 05/28/21 [History Confirmed 06/01/21] multivitamin 1 tab PO QAM 05/28/21 [History Confirmed 06/01/21] ondansetron 4 mg disintegrating tablet 4 mg PO Q6H PRN #10 tab 05/28/21 [Rx Confirmed 06/01/21] hydrocodone 5 mg-acetaminophen 325 mg tablet 1 tab PO Q6H PRN #15 tab 05/29/21 [Rx Confirmed 06/01/21] oxycodone 5 mg tablet 5 mg PO Q4H PRN #15 tab 05/31/21 [Rx Confirmed 06/01/21] phenazopyridine 200 mg tablet (Pyridium) 200 mg PO Q8H PRN #10 tab 05/31/21 [Rx Confirmed 06/01/21] phentermine 37.5 mg capsule 37.5 mg PO QAM 05/31/21 [History Confirmed 06/01/21] rosuvastatin 40 mg tablet 40 mg PO HS 05/31/21 [History Confirmed 06/01/21] tamsulosin 0.4 mg capsule (Flomax) 0.4 mg PO QAM 05/31/21 [History Confirmed 06/01/21] Home Medications Morphine Sulfate (Morphine Sulfate 4 Mg/Ml 1 Ml Carp\\Vial) 4 mg IV Q15M PRN PRN Reason: Pain Stop: 06/15/21 11:12 Code Status & VTE Plan Code Status Full Code VTE Prophylaxis Plan VTE Prophylaxis will be ordered: Yes Supervising Physician Co-Signing Physician Notes I personally saw and examined the patient. I verified all hollis points and agree with David Shane PA-C with the following exceptions and/or additions: 46 year old female admission for ureterolithiasis. Patient seen after ureteral stent placed and no longer in pain. No dysuria O/E HS1+2, Chest CTAB, Abdo SNT, no CVA tenderness. A/P Ureterolithiasis - stable for discharge s/p ureteral stent insertion and stone basket extraction. Antibiotics per urology. Follow up with urology on discharge. Recommend BMP in approximately 1 week MARTÍN - suspect post obstructive, should now improve as patient is eating and drinking well PG Care Time/CCT Total # of Minutes Spent Total Time Spent with Patient: Total time spent is greater than 50% in coordination of care (as documented) at patient's floor/unit and/or counseling patient:35 Coding Level of Care Code 35750 Initial Inpt Care Lvl 2 Diagnoses Colic, ureteral N23 Right ureteral stone N20.1 Hydroureter on right N13.4 Ureteral stone with hydronephrosis N13.2 MARTÍN (acute kidney injury) N17.9 Hypertension I10 Hyperlipidemia E78.5 Time Spent (min) 50
[2021-06-01 15:03] LABS: Appearance Urine Clear (Clear); Color Urine Orange
[2021-06-01 15:04] LABS: Specific Gravity Urine 1.018 (1.000-1.030)
[2021-06-01 15:08] LABS: Bacteria Urine 1+ (Negative); RBC Urine 0-4 /hpf (0-4)
--- NOTE | 2021-06-01 15:09 | Anesthesiology Consultation ---
Date of Service June 01, 2021 Assessment & Plan Chart Review Chart Review: Acceptable Risk for Surgery and Patient NOT seen in Pre Admission Testing Consults Requested none ASA [id number] Proposed Anesthesia Anesthesia Type: General Additional Comments: covid test negative History Surgery Operation Date: 06/01/21 10:05 Proposed Procedures p Cystoscopy, Right Stent Placement - Jhonatan Pickard, DO Height/Weight Height: 5 ft 5 in Weight: 124.1 kg Allergies Allergy/AdvReac Type Severity Reaction Status Date / Time peanut Allergy Verified 06/01/21 12:51 Penicillins Allergy Verified 06/01/21 12:51 Medications Home Medications Medication Instructions Recorded Confirmed Last Taken lorazepam 0.5 mg tablet 0.5 mg PO Q8H PRN #30 tab 06/19/20 06/01/21 05/31/21 gabapentin 300 mg capsule 1,500 mg PO HS #450 cap 12/18/20 06/01/21 05/31/21 zolpidem 5 mg tablet 5 mg PO HS #90 tab 04/10/21 06/01/21 05/31/21 MedTerra CBD Gummies 25 mg PO DAILY PRN 05/15/21 06/01/21 05/31/21 albuterol sulfate 90 mcg/actuation 2 puffs INH Q6H PRN 05/28/21 06/01/21 05/31/21 aerosol inhaler (ProAir HFA) bupropion HCl 300 mg 24 hr tablet, 300 mg PO QAM 05/28/21 06/01/21 05/31/21 extended release enalapril 5 mg-hydrochlorothiazide 1 tab PO QAM 05/28/21 06/01/21 05/31/21 12.5 mg tablet estradiol 2 mg tablet 2 mg PO QAM 05/28/21 06/01/21 05/31/21 ibuprofen 200 mg tablet 800 mg PO Q6H PRN 05/28/21 06/01/21 05/31/21 multivitamin 1 tab PO QAM 05/28/21 06/01/21 05/31/21 ondansetron 4 mg disintegrating 4 mg PO Q6H PRN #10 tab 05/28/21 06/01/21 05/31/21 tablet hydrocodone 5 mg-acetaminophen 325 1 tab PO Q6H PRN #15 tab 05/29/21 06/01/21 05/31/21 mg tablet oxycodone 5 mg tablet 5 mg PO Q4H PRN #15 tab 05/31/21 06/01/21 Unknown phenazopyridine 200 mg tablet 200 mg PO Q8H PRN #10 tab 05/31/21 06/01/21 05/31/21 (Pyridium) phentermine 37.5 mg capsule 37.5 mg PO QAM 05/31/21 06/01/21 05/31/21 rosuvastatin 40 mg tablet 40 mg PO HS 05/31/21 06/01/21 05/31/21 tamsulosin 0.4 mg capsule (Flomax) 0.4 mg PO QAM 05/31/21 06/01/21 05/31/21 Active Medications Generic Name Dose Route Start Last Admin Trade Name Freq PRN Reason Stop Dose Admin Morphine Sulfate 4 mg 06/01/21 11:13 06/01/21 14:45 Morphine Sulfate 4 Mg/Ml 1 Ml Carp\Vial IV 06/15/21 11:12 4 mg Q15M PRN Administration Pain Past Medical History Medical History Allergic rhinitis Bilateral cataracts Chronic right sacroiliac joint pain Depression with anxiety Eczema Hyperlipidemia Hypertension Insomnia Left knee pain Migraine headache Myofascial pain Nerve pain Osteoarthritis Varicose veins of legs Exercise / Class Metabolic Activity II 4-5 Yardwork/Stairs/Walk up hill Past Family History Family History Father Diabetes Hypertension Myocardial infarction Coronary heart disease Mother Depression Hypertension Anxiety Sister Gallbladder disease Denies family history of Ovarian cancer Prostate cancer Breast cancer Past Surgical History Surgical History H/O Achilles tendon repair H/O foot surgery Padgett's neuroma excision History of arthroscopy of knee History of section History of total hysterectomy with bilateral oophorectomy Status post surgical manipulation of ankle joint left Past Anesthesia History No Hx of Anesthesia Complications and No Family Hx of Anesthesia Complications History of PONV No Hx of PONV and No Hx of Motion Sickness Social History Smoking Status: Never smoker Hx Alcohol Use: No Hx Substance Use: No Physical Exam Vital Signs Last Vital Signs Temp 36.4 C L 06/01/21 10:56 Pulse 82 06/01/21 14:41 Resp 14 06/01/21 14:41 BP 144/83 H 06/01/21 14:41 Pulse Ox 93 06/01/21 14:41 Testing Laboratory Results 06/01/21 11:20 06/01/21 11:20 Urine Color Mono 06/01/21 14:39 Urine Appearance Clear (Clear) 06/01/21 14:39 Urine pH (4.5-7.5) 06/01/21 14:39 Ur Specific [place] 1.018 (1.000-1.030) 06/01/21 14:39 Urine Protein (Negative) 06/01/21 14:39 Urine Glucose (UA) (Negative) 06/01/21 14:39 Urine Ketones (Negative) 06/01/21 14:39 Urine Nitrite (Negative) 06/01/21 14:39 Ur Leukocyte Esterase (Negative) 06/01/21 14:39
[2021-06-01] MEDS ORDERED: ceFAZolin 2000MG 2,000 MG/15 ML SYR IV ONE ×2 (15:11→16:39)
[2021-06-01] MEDS ORDERED: LABETALOL HCL IV 5 MG/ML 20ML IV PRN (15:42)
[2021-06-01] MEDS ORDERED: ATROPINE SULFATE 0.1 MG/ML 10ML SYR IV PRN (15:42)
[2021-06-01] MEDS ORDERED: ePHEDrine sulfate 50 MG/ML AMP IV PRN (15:42)
[2021-06-01] MEDS ORDERED: fentaNYL citrate 100 MCG/2 ML VIAL IV PRN (15:42)
[2021-06-01] MEDS ORDERED: ONDANSETRON INJ 2 MG/ML 2 ML VIAL IV PRN (15:42)
[2021-06-01] MEDS ORDERED: NALOXONE HCL 0.4 MG/1 ML VIAL/CARP IV PRN (15:42)
[2021-06-01] MEDS ORDERED: FLUMAZENIL 0.1 MG/1 ML 10 ML VIAL IV PRN (15:42)
[2021-06-01] MEDS ORDERED: PROMETHAZINE HCL 12.5 MG in SODIUM CHLORIDE 0.9% 50 ML IV PRN (15:42)
--- NOTE | 2021-06-01 16:24 | Operative Report ---
PG Post Operative Report Pre & Post Diagnosis Obstructing Right Ureteral Stone Same Operation Date: 06/01/21 10:05 <No data on this case meets the specified criteria> I identified the patient and participated in the time-out.: Yes Procedure Cystoscopy with right ureteroscopy, ureteral dilation, stone basket extraction, retrograde pyelogram, and stent placement. Operation Date: 06/01/21 10:05 <No data on this case meets the specified criteria> Surgeon Jhonatan Pickard, II, DO Vocational Rehab Consultant None Estimated Blood Loss 1 Findings Consistent with Post-Op Diagnosis Stricture at UO/distal ureter. Stone proximal to stricture. Stone destroyed to dust and small fragments and larger fragments removed. Specimens Stone Right Ureter Drains 6 Fr Multilength Anesthesia Type General Complications none Disposition Disposition: Recovery Room Indications Patient with bothersome stones. Risks and benefits discussed at length. Description of Procedure Patient was consented and brought back to the operating room. Patient was placed under anesthesia in the supine position and moved to the dorsal lithotomy position. Patient was prepped and draped in the regular sterile fashion. A time out was completed. A 30degree Cystoscope was placed into the bladder and the entire bladder was examined. The UO's were identified. The UO was cannulized with a catheter and a retrograde pyelogram was completed. A wire was then placed. The Rigid ureteroscope was taken into the ureter. The stone was identified. A stricture was just distal to the stone which was impacted into the wall. The stone was displaced and the stricture dilated. The stone was then grasped and removed and sent for analysis. The entire area was once again examined. No residual large fragments or areas of concern were noted. Visualization was limited due to the pyridium the patient had been taking and debris proximal to the stone. The scope was slowly removed with the wire left in place. Contrast was placed through the scope for a pyelogram to assist in stent placement. The entire ureter was examined as the scope was slowly removed. No obstructions or other areas of concern were noted. With the wire in place, a 6 Fr Double J stent was placed. It was confirmed with fluoroscopy. With the stent in place, the bladder was emptied. The scope was removed. The patient was cleaned, aroused from anesthesia, and transferred to the pacu in stable condition having tolerated the procedure well with no complications. I was present and participated in all aspects of the procedure. The patient will be monitored in the PACU until transferred. Plan to maintain stent for 2-3 weeks. Check Imaging prior to removal in office. I attest to the content of the Intraoperative Record and any orders documented therein. Any exceptions are noted below.
--- NOTE | 2021-06-01 16:37 | Fluoroscopy Report ---
FL retrograde includes kub CLINICAL HISTORY: RT CYSTO STENT COMPARISON STUDY: None FLUOROSCOPY TIME: 15 second. FLUOROSCOPIC IMAGES: 3 FINDINGS: A double-J ureteral stent was placed on the right. No filling defects are identified within the imaged portion of the calyces. IMPRESSION: Status post double-J ureteral stent placement. ACT 112: Negative or not required by law. Electronically signed by: Humphrey Amezcua M.D. 06/01/2021 4:35 PM
[2021-06-01] MEDS ORDERED: DIATRIZOATE MEGLUMINE 30% 100ML VIAL INSTIL ONE (16:38)
--- NOTE | 2021-06-01 16:56 | Anesthesiology Progress Note ---
Date of Service June 01, 2021 Anesthesia Post Procedure Vital Signs Vital Signs: Temp Pulse Pulse Resp BP BP Pulse Ox 06/01/21 16:29 36.6 C 91 H 12 131/71 96 06/01/21 15:27 36.8 C 74 12 142/75 H 94 06/01/21 14:41 82 14 144/83 H 93 06/01/21 12:27 70 14 144/77 H 98 06/01/21 11:29 77 14 154/86 H 98 06/01/21 10:56 36.4 C L 101 H 16 173/95 H 94 Pain Intensity Right Flank: Pain Intensity: 6 Transfer of Care Handoff Completed per policy Notes Mental Status: alert / awake / arousable Patient Amnestic to Procedure: Yes Nausea / Vomiting: adequately controlled Pain: adequately controlled Airway Patency, RR, SpO2: stable & adequate BP & HR: stable & adequate Hydration State: stable & adequate Anesthetic Complications: no major complications apparent
[2021-06-01] MEDS ORDERED: LORazepam 0.5 MG TAB PO PRN (17:25)
[2021-06-01] MEDS ORDERED: SODIUM CHLORIDE 0.9% 1000ML 1,000 ML IV SCH (17:25)
[2021-06-01] MEDS ORDERED: HYDROmorphone INJ 0.5 MG/0.5 ML SYR IV PRN (17:25)
[2021-06-01] MEDS ORDERED: oxyCODONE HCL IR 5 MG TAB (IMMEDIATE RELEASE) PO PRN (17:25)
[2021-06-01] MEDS ORDERED: PHENAZOPYRIDINE HCL 200 MG TAB PO PRN (17:25)
[2021-06-01] MEDS ORDERED: ZOLPIDEM TARTRATE 5 MG TAB PO PRN (17:25)
[2021-06-01] MEDS ORDERED: HYDROCODONE/ACETAMOPHEN 5/325MG TAB PO PRN (17:25)
[2021-06-01] MEDS ORDERED: ONDANSETRON 4 MG OD TAB PO PRN (17:40)
[2021-06-01] MEDS ORDERED: ALBUTEROL HFA 8 GM INHALER INH PRN (17:45)
[2021-06-01] MEDS ORDERED: ENOXAPARIN INJ 40 MG/0.4 ML SYR SQ SCH (20:00)
[2021-06-01] MEDS ORDERED: ROSUVASTATIN CALCIUM 20 MG TAB PO SCH (21:00)
[2021-06-01] MEDS ORDERED: GABAPENTIN 300 MG CAP PO SCH (21:00)
[2021-06-01] MEDS ORDERED: ZOLPIDEM TARTRATE 5 MG TAB PO SCH (21:00)
[2021-06-02] MEDS ORDERED: MULTIVITAMIN TAB PO SCH (09:00)
[2021-06-02] MEDS ORDERED: buPROPion XL 300 MG TABCR PO SCH (09:00)
[2021-06-02] MEDS ORDERED: estradioL 1 MG TAB PO SCH (09:00)
[2021-06-02] MEDS ORDERED: TAMSULOSIN HCL 0.4 MG CAP PO SCH (09:00)
--- NOTE | 2021-06-04 13:02 | Discharge Summary ---
Date of Service June 01, 2021 Admission HPI Per Admitting Provider Mrs. Lynch is a 46-year-old female with a history of Hypertension, Familial Hypercholesterolemia, Depression, Anxiety, Obesity, Osteoarthritis, Migraine Headaches, Chronic Insomnia, and Varicose Veins who presents to [facility] ER today with ongoing RLQ and right flank pain and ureteral colic secondary to an obstructing ureteral stone resulting in right hydroureter and right hydronephrosis and MARTÍN. To her knowledge, this is the 1st time she has ever had kidney stone. Patient states that last Tuesday evening, she began to note right sided flank pain which seemed to come and go, with some associated nausea. she came to the emergency room on 05/28/2021 with these symptoms, CT scan showed a 5 mm obstructing calculus the right vesicoureteral junction causing mild to moderate right hydroureteronephrosis. patient was re-evaluated the emergency room on 05/31/2021 with uncontrolled severe right flank pain. Arrangements were made to meet with [facility] later today but because of her persistent uncontrolled flank and RLQ pain -- she was advised to come back into the emergency room for admission and a planned stone retrieval. At the present time, after receiving morphine, her pain is "not so bad", but when she has colic, it is extremely painful. She continues to have some associated nausea with her colic, but has not vomited. She has not had any fever, chills, or diaphoresis. Patient denies any dysuria, urinary hesitancy, urinary frequency, or urinary urgency. She is not . At home, she has both Vicodin and Oxy IR available for pain control -- but these have not been effectively controlling her pain. Principal Diagnosis Ureterolithiasis Discharge Exam See H&P Discharge Data Allergies Allergy/AdvReac Type Severity Reaction Status Date / Time peanut Allergy Verified 06/01/21 12:51 Penicillins Allergy Verified 06/01/21 12:51 Consultations 06/01/21 11:38 ED Decision to Admit Stat 06/01/21 17:25 Consult Urology Routine Consult Urology Routine Procedures Performed Operation Date: 06/01/21 10:05 Actual Procedures p Right Ureteral Stent Insertion (Right) - Jhonatan Pickard DO s Cystoscopy, Right Ureteroscopy, Stone Basket Extraction, Right Ureteral Dilation, Right Retrograde Pyleogram(Right) - Jhonatan Pickard DO Ordered Studies 06/01/21 [place] retrograde includes kub Routine Hospital Course (1) Right ureteral stone: Allyn Lynch is a 46 year old female admitted and discharged the same day on June 01, 2021 due to right renal colic pain, known ureterolithiasis and hydronephrosis who failed awaiting outpatient treatment. She underwent Cystoscopy with right ureteroscopy, ureteral dilation, stone basket extraction, retrograde pyelogram, and stent placement the same day and was discharged on antibiotics per urology recommendations. She should follow up with urology for eventual stent removal. (2) MARTÍN (acute kidney injury): (3) Hypertension: (4) Hyperlipidemia: Total Time Total Time Spent Total Time Spent (In Minutes): 20 Discharge Plan Discharge Items Patient Disposition: Home - Self-Care Reason For Visit: RIGHT URETERAL COLIC, HYDROURETERONEPHROSIS Discharge Diagnosis: Same Condition on Discharge: Fair Activity: Resume your previous activity Lifting: No more than 50 pounds Non-emergency contact: Urologist Call non-emergency contact if: you have any medication questions, your pain is not controlled, your pain is unusual for you, your pain is concerning for you, you have a fever and your temperature is above 101.5 Follow-up/Referrals: Betsy Hughes MD [Primary Care Provider] - Diet: Regular Ambulatory Orders: Basic Metabolic Panel (Routine) Timeframe: 1 Week Location: Determined by Patient Ordered By: Tate Altman Attending Provider Instructions: May blood in urine. May have discomfort. Call if any fevers or chills. Plan to follow-up in office. Office will arrange and set up for neck step in management. Repeat BMP in 1 week to check for resolution of acute kidney injury Pending Studies at Discharge: No Stand-Alone Forms: [facility] Medications and DC Order Prescriptions: New phenazopyridine [Pyridium] 200 mg tablet 200 mg PO Q8H PRN (Reason: pain) Qty: 10 RF: 0 tamsulosin 0.4 mg capsule 0.4 mg PO HS Qty: 30 RF: 0 Continued lorazepam 0.5 mg tablet 0.5 mg PO Q8H PRN (Reason: anxiety) Qty: 30 RF: 0 gabapentin 300 mg capsule 1,500 mg PO HS Qty: 450 RF: 3 zolpidem 5 mg tablet 5 mg PO HS Qty: 90 RF: 0 hydrocodone-acetaminophen 5-325 mg tablet 1 tab PO Q6H PRN (Reason: pain) Qty: 15 RF: 0 MedTerra CBD Gummies 25 mg 25 mg PO DAILY PRN (Reason: Calm) RF: 0 multivitamin Tablet 1 tab PO QAM RF: 0 ibuprofen 200 mg Tablet 800 mg PO Q6H PRN (Reason: Pain) RF: 0 enalapril-hydrochlorothiazide 5-12.5 mg tablet 1 tab PO QAM RF: 0 estradiol 2 mg tablet 2 mg PO QAM RF: 0 albuterol sulfate [ProAir HFA] 90 mcg/actuation HFA aerosol inhaler 2 puffs INH Q6H PRN (Reason: Shortness Of Breath) RF: 0 bupropion HCl 300 mg tablet extended release 24 hr 300 mg PO QAM RF: 0 ondansetron 4 mg tablet,disintegrating 4 mg PO Q6H PRN (Reason: nausea and vomiting) Qty: 10 RF: 0 phentermine 37.5 mg capsule 37.5 mg PO QAM RF: 0 rosuvastatin 40 mg tablet 40 mg PO HS RF: 0 oxycodone 5 mg tablet 5 mg PO Q4H PRN (Reason: pain) Qty: 15 RF: 0 No Action ezetimibe [Zetia] 10 mg tablet 10 mg PO DAILY Qty: 90 RF: 3 Discharge Orders: Discharge Order (Routine); Ordered 06/01/21 Ordered By: Tate Donaldson Admission Data Admit Date/Time: 06/01/21 15:57 Attending Provider: Tate Donaldson Admit Provider: Tate Donaldson Primary Care Provider: Betsy Hughes Other Providers: Jhonatan Pickard ; Tate Donaldson Coding Level of Care Code None Diagnoses Right ureteral stone N20.1 MARTÍN (acute kidney injury) N17.9 Hypertension I10 Hyperlipidemia E78.5 Comment Patient admitted and discharged within 8 hours
[2021-06-07 15:17] LABS: Component 2 DNR; Source URETERAL STONE
== END 2021-06-01 18:29 | disposition home or self-care (01) | DRG 660 ==
LOC: ED 10:54 → OR 15:13 → INTOOBSV 15:57 → EDINP 15:57